=== PATIENT | female | born 2000 | race Caucasian/White ===

== ENCOUNTER 2024-04-24 20:33 | Emergency (ER) | payer MEDICAID, SELFPAY ==
[2024-04-24 20:35] VITALS: BP 145/83; PULSE 104; RESP 20; TEMP 36.9; O2SAT 97
[2024-04-24 20:42] VITALS: PULSE 119; RESP 20; O2SAT 100
[2024-04-24 20:47] VITALS: BMI 34.9
--- NOTE | 2024-04-24 21:06 | PD.EDRME ---
Rapid Medical Screening Exam RME Arrival date/time: 04/24/24 20:33 24F with history of DM and psych presents to ED with voluntary psych eval. Patient is not speaking to this provider. Chief Complaint: Depression Time Seen by Provider: 04/24/24 21:23 Vital signs: Vital Signs Temperature 98.4 F 04/24/24 20:35 Pulse Rate 104 H 04/24/24 20:35 Respiratory Rate 20 04/24/24 20:35 Blood Pressure 145/83 H 04/24/24 20:35 Pulse Oximetry (%) 97 04/24/24 20:35 Oxygen Delivery Method Room Air 04/24/24 20:35
--- NOTE | 2024-04-24 22:07 | PD.EDPSYCH ---
ED Psych RME/HPI General Chief Complaint: Depression Stated Complaint: VOLUNTEER EVAL Time Seen by Provider: 04/24/24 21:23 Source: patient Arrival date/time: 04/24/24 20:33 Mode of arrival: ambulatory Limitations: no limitations RME / HPI RME / HPI Narrative: 04/24/24 20:33 24F with history of DM and psych presents to ED with voluntary psych eval. Patient is not speaking to this provider. --- DR. LEE MAIN ED EVALUATION: 24 yo who is here for not feeling well and feels like she came out of something . The patient states that she feels overwhelmed that time and then will get overwhelmed and feel anxious. She does have a seizure disorder but does not recall if she had a seizure or not. She feels overwhelmed, not suicidal, not homicidal but feels like she is just needs help. She has generalized headache and bodyaches. No fevers, or cough. This has happened before or when she feels like she needs psychiatric evaluation. Related Data Home Medications ?Medication ?Instructions ?Recorded ?Confirmed atorvastatin 20 mg tablet 20 mg PO HS 06/16/22 07/03/23 guanfacine 1 mg tablet 1 mg PO HS 06/16/22 07/03/23 norgestimate 0.25 mg-ethinyl 1 tab PO QDAY 06/16/22 07/03/23 estradiol 35 mcg tablet (Estarylla) buspirone 15 mg tablet 15 mg PO BID 07/03/23 07/03/23 fluoxetine 20 mg capsule 20 mg PO QDAY 07/03/23 07/03/23 levetiracetam 750 mg tablet 750 mg PO QDAY 07/03/23 07/03/23 metformin 500 mg tablet 500 mg PO BID 07/03/23 07/03/23 oxcarbazepine 150 mg tablet 150 mg PO BID 07/03/23 07/03/23 ziprasidone HCl 40 mg capsule 40 mg PO HS 07/03/23 07/03/23 Previous Rx's ?Medication ?Instructions ?Recorded levofloxacin 750 mg tablet 750 mg PO QDAY #3 tabs 07/06/23 Allergies Allergy/AdvReac Type Severity Reaction Status Date / Time Sulfa (Sulfonamide Allergy Unknown Verified 07/01/23 19:34 Antibiotics) Review of Systems Review of Systems Systems Reviewed: All systems reviewed, normal except as documented Narrative Review of Systems: Gen: No fever, no chills, no weight loss EYES: No discharge, no visual changes, no pain HEENT: No ear pain, no congestion, no sore throat PULM: No shortness of breath, no cough, no congestion CV: No chest pain, no dyspnea on exertion, no palpitations GI: No nausea, no vomiting, no diarrhea, no pain, no constipation : No frequency, no urgency, no dysuria Musc/skel: No joint pain, no back pain Skin: No rash. Psyc: No hallucinations, no depression Heme/Lymph: No easy bleeding or bruising tendencies Neuro: No weakness, no headache Past Medical History Past Medical History NEUROLOGIC: Positive Neurological Disorders and Seizures CARDIAC: Positive Hypercholesterolemia and Hypertension; Negative Cardiac Disorders or Congestive Heart Failure RESPIRATORY: Negative Chronic Obstructive Pulmonary Disease (COPD) or Asthma GENITOURINARY: Negative Renal Disease ENDOCRINE: Positive Endocrine Disorders and Diabetes Mellitus Type 2; Negative Diabetes Mellitus Type 1 HEMATOLOGIC: Negative Sickle Cell Disease PSYCHO/SOCIAL: Positive Psychiatric Problems, Schizophrenia, Bipolar Disorder, Depression and Anxiety OTHER HISTORY: Negative Autoimmune Disease Family History FAMILY HISTORY: Positive Family Psychiatric Problems; Negative Family Neurologic Problems, Family Respiratory Disorders, Family Cardiac Disorders, Family Gastrointestinal Problems, Family Cancer, Family Surgery or Family Anesthesia Reaction Surgical History SURGICAL: Positive Adenoidectomy Social History SMOKING STATUS: Never smoker SUBSTANCE USE: former substance user (last use 1 year ago) ED Exam Narrative Physical exam: Patient is tearful and crying. She is alert and oriented and talking in full sentences. General Limitations: Present no limitations General appearance: Present other Head Head exam: Present normocephalic and normal inspection; Absent atraumatic Eye Eye exam: Present PERRL ENT ENT exam: Present normal exam Neck Neck exam: Absent meningismus Chest Chest inspection: Present normal inspection; Absent tenderness Respiratory Respiratory exam: Present normal lung sounds bilaterally; Absent respiratory distress, wheezes or stridor Abdominal Exam Abdominal exam: Present distention; Absent tenderness, guarding or rebound Extremities Exam Extremities exam: Absent normal inspection or pedal edema Back Exam Back exam: Present normal inspection Psychiatric Psychiatric exam: Present depressed, agitated, anxious and flat affect; Absent manic, homicidal ideation or suicidal ideation Skin Skin exam: Present warm; Absent dry, intact or normal color Course Quality Measures none Orders Category Date Time Status Alcohol, Urine Stat Lab 04/24/24 22:52 Completed Drug Screen,Urine Stat Lab 04/24/24 22:52 Completed HCG Qualitative,Urine Stat Lab 04/24/24 22:52 Completed Vital Signs Vital signs: Vital Signs Temperature 98.4 F 04/24/24 20:35 Pulse Rate 104 H 04/24/24 20:35 Respiratory Rate 20 04/24/24 20:35 Blood Pressure 145/83 H 04/24/24 20:35 Pulse Oximetry (%) 97 04/24/24 20:35 Oxygen Delivery Method Room Air 04/24/24 20:35 Psych MDM Narrative MDM Narrative:: Differential diagnosis includes seizure disorder, psychiatric disorder, dehydration, electrolyte abnormality, hyperglycemia ? Scribe Attestation: I, Katlin Parrish, am scribing for and in the presence of Dr. Otero. Provider Notation: Although this document has been carefully reviewed, there may still be some phonetic and other typographical errors. These errors are purely grammatical due to imperfections in the software program and should not be construed in any way to compromise the substance of the patient's medical care during this visit. Patient data External records reviewed:: [facility] previous records Clinical information provided by:: patient Social determinants that could affect healthcare access:: mental health Patient has the following chronic illnesses:: Seizures, Hypercholesterolemia and Hypertension; Diabetes Mellitus Type 2; Schizophrenia, Bipolar Disorder, Depression and Anxiety How is presenting disease/condition affected by chronic disease/condition?: uneffected by Evaluation data The following diagnostics were reviewed and interpreted by me:: lab results Lab and/or radiology exams considered but not ordered:: None Interpretation Summary: Utox neg Medications / Prescriptions Medications or Prescriptions considered but not ordered:: None Medication administrations:: As above Consultations Consultation(s) initiated? (list below): No Diagnosis Psych Differential Diagnosis: other (seizure disorder, psychiatric disorder, dehydration, electrolyte abnormality, hyperglycemia) Most likely diagnosis given after review of the tests above:: Patient eloped Admission Indicated Admission indicated?: not indicated Explain why admission is indicated or not indicated:: Elopement Admission Request Was there a request for admission?: No Disposition Plan Disposition Plan: other (specify) (Elopment) Discharge Plan Plan Patient Disposition: Elopement Patient condition on transfer: Stable Prescriptions/Referrals Prescriptions/Med Rec: No Action ziprasidone HCl 40 mg Capsule 40 mg PO HS metformin 500 mg Tablet 500 mg PO BID oxcarbazepine 150 mg Tablet 150 mg PO BID fluoxetine 20 mg Capsule 20 mg PO QDAY buspirone 15 mg Tablet 15 mg PO BID levetiracetam 750 mg Tablet 750 mg PO QDAY levofloxacin 750 mg tablet 750 mg PO QDAY Qty: 3 0RF atorvastatin 20 mg tablet 20 mg PO HS Patient Comments: TAKE 1 TABLET BY MOUTH AT BEDTIME norgestimate-ethinyl estradiol [Estarylla] 0.25-35 mg-mcg Tablet 1 tab PO QDAY guanfacine 1 mg Tablet 1 mg PO HS Referrals: No Primary/Family,Physician [Primary Care Provider] - In 1 week Problem List Clinical Impression: Anxiety Patient/Caregiver Discharge Instructions Education Materials: ED Anxiety Reaction Print Language: Puerto Rican Stand Alone Forms: Naz Award Info., Patient Portal Info Letter
[2024-04-24 23:43] LABS: Alcohol, Urine Negative (Negative); Amphetamine/Methamp Scrn,U Negative (Negative); Barbiturate Screen,Urine Negative (Negative); Benzodiazepines Screen,Urine Negative (Negative); Benzoylecgonine Screen, Ur Negative (Negative); Fentanyl Screen,Urine Negative (Negative); HCG Qualitative,Urine Negative; Opiate Screen,Urine Negative (Negative); THC Screen,Urine Negative (Negative)
--- NOTE | 2024-04-25 03:10 | PC.NURSE ---
PT WALK OUT OF THE ER
== END 2024-04-25 03:10 | disposition left against medical advice (07) ==
PROVIDERS: Physician Assistant; Emergency Provider Emergency Medicine
DX: F41.9 Anxiety disorder, unspecified (principal)
CPT/HCPCS: 80307; 80320; 81025; 99281; G0480

== ENCOUNTER 2024-07-20 13:02 | Emergency (ER) | payer MEDICAID, SELFPAY ==
[2024-07-20 13:15] VITALS: BP 137/89; PULSE 124; RESP 21; TEMP 36.6; O2SAT 94
[2024-07-20 13:16] VITALS: BMI 45.1
[2024-07-20 13:46] VITALS: PULSE 120; RESP 17; O2SAT 97
--- NOTE | 2024-07-20 13:46 | PD.EDHA ---
ED Headache RME/HPI General Chief Complaint: Headache Stated Complaint: HEADACHE Time Seen by Provider: 07/20/24 13:46 Arrival date/time: 07/20/24 13:02 RME / HPI RME / HPI Narrative: Patient's brought in by EMS after EMS was called by [employer] educator concern for this patient. At the scene she was found have a blood pressure that was low blood pressure went up from 180s to 137 range. There is a questionable episode of syncope. Patient has a history of both bipolar and schizophrenia, patient reports having headaches for the past 2 months and has gone to [facility] with a plan to do a CAT scan of her brain. Is also supposed has a recent diagnosis of seizures and has had nausea since June etiology unclear. Patient has no fever cough runny nose. She has no injury or trauma. She is on several psych medicines. Related Data Home Medications ?Medication ?Instructions ?Recorded ?Confirmed atorvastatin 20 mg tablet 20 mg PO HS 06/16/22 07/03/23 guanfacine 1 mg tablet 1 mg PO HS 06/16/22 07/03/23 norgestimate 0.25 mg-ethinyl 1 tab PO QDAY 06/16/22 07/03/23 estradiol 35 mcg tablet (Estarylla) buspirone 15 mg tablet 15 mg PO BID 07/03/23 07/03/23 fluoxetine 20 mg capsule 20 mg PO QDAY 07/03/23 07/03/23 levetiracetam 750 mg tablet 750 mg PO QDAY 07/03/23 07/03/23 metformin 500 mg tablet 500 mg PO BID 07/03/23 07/03/23 oxcarbazepine 150 mg tablet 150 mg PO BID 07/03/23 07/03/23 ziprasidone HCl 40 mg capsule 40 mg PO HS 07/03/23 07/03/23 Previous Rx's ?Medication ?Instructions ?Recorded levofloxacin 750 mg tablet 750 mg PO QDAY #3 tabs 07/06/23 Allergies Allergy/AdvReac Type Severity Reaction Status Date / Time Sulfa (Sulfonamide Allergy Unknown Verified 07/01/23 19:34 Antibiotics) Review of Systems Review of Systems Narrative Review of Systems: Review of Systems: Constitutional: DENIES: Fevers,; Eyes: DENIES: Loss of vision, Head/Ear/Nose: DENIES: Loss of hearing. Throat: Denies dysphagia. Cardiovascular: Denies chest pain, Dyspnea or syncope. Respiratory: DENIES: Shortness of breath, Gastrointestinal: DENIES: Rectal bleeding or melena. Genitourinary: DENIES: Dysuria (painful or difficult urination),; Musculoskeletal: DENIES: Arthralgia (pain in a joint),; Skin: DENIES: Rash,; Neurological: DENIES: loss of function or movement,; Psychiatric: DENIES: recent major life stressor, emotional problem, illicit drug use or abuse,; Endocrinology: DENIES: Weight change,; Hematologic/Lymphatic: DENIES: Abnormal bruising. Allergic/Immunologic: DENIES: Urticaria (hives), Past Medical History Past Medical History NEUROLOGIC: Positive Neurological Disorders and Seizures CARDIAC: Positive Hypercholesterolemia ENDOCRINE: Positive Endocrine Disorders and Diabetes Mellitus Type 2 PSYCHO/SOCIAL: Positive Psychiatric Problems, Schizophrenia, Bipolar Disorder, Depression and Anxiety Family History FAMILY HISTORY: Positive Family Psychiatric Problems Surgical History SURGICAL: Positive Adenoidectomy Social History SMOKING STATUS: Never smoker SUBSTANCE USE: former substance user (last use 1 year ago) ED Exam Narrative Physical exam: Physical Exam: General: The vital signs were reviewed. Patient is lying on the ambulance gurney in the ambulance bay she appears to be somewhat dramatic at times. She follows commands and moves everything on request. She is able to stand on her own but states she feels weak and dizzy takes a few steps and appears to be unsteady or uncertain so we sat her down. The patient is non-toxic, in no apparent distress and appears healthy with a patent airway, no respiratory distress and has no apparent circulatory problems. Head & Scalp: Normocephalic, atraumatic. Face: Appears normal and is without lesions, deformity. Ears: Left external pinna appears normal. Right external pinna appears normal. Eyes: The sclera is anicteric. No obvious photophobia. The Left and Right Orbit/Lid/Conjunctiva appears normal without swelling, discoloration or injection. Nose: The nose is without deformity, discharge or tenderness; Throat: Appears normal. The mucous membranes are pink and moist without exudates, redness or mass seen. The tongue appears normal. Neck: The neck is supple and no apparent mass or adenopathy. Chest: The chest wall is normal in size and symmetry and has no chest wall tenderness or crepitus. The patient displays normal ventilator effort without retractions, accessory muscle use and has adequate air movement bilaterally with no wheezes and no rales. Cardiovascular: Regular rate and rhythm; No murmurs, rubs, or gallops; Gastrointestinal: The abdomen appears normal. No obvious hernias or mass. The abdomen is soft and benign, non-distended, with no pain, no guarding and no rebound tenderness. Bowel sounds are present and normal sounding. No CVA tenderness. Genitourinary: Back/Spine: Extremities/Musculoskeletal/lymphatic: The bilateral upper and lower extremities are warm. There is no evidence of arterial insufficiency. There is no evidence of venous insufficiency/edema. The patient spontaneously moves bilateral upper and lower extremities with no pain and no limitation of movement. There is no apparent, injury or trauma. Skin: The skin is warm, dry and intact. No rashes. No petechia. No purpura. No abnormal bruising. The color is appropriate with no cyanosis. Mental status/Psychiatric: Mental status is appropriate for age. The patient has no apparent delusions, visual hallucinations, no apparent audible hallucinations. The patient has no apparent suicidal thoughts/ideation and no apparent homicidal thoughts/ideation. Neurological: The patient is awake, alert, interactive, cordial, cooperative and is oriented to name and situation. The patient follows commands and answers historical question with no impairment. There is no visual disturbance apparent. The pupils are equal and reactive bilaterally with normal eye movements and no diplopia The bilateral upper and lower extremities have normal strength, normal range of motion and normal functioning. The gait, station and balance appear to be unsteady or uncertain. She has no obvious dysmetria on finger-nose testing patient appeared to get her have some element of vertigo with head position changes. Course Quality Measures none Orders Category Date Time Status EKG (ED ONLY) *Do not use* NOW Care 07/20/24 13:48 Completed Miscellaneous Nursing Order NOW Care 07/20/24 16:28 Active EKG (ED Only) Stat Exams 07/20/24 13:48 Draft XR chest 1V portable Stat Exams 07/20/24 13:48 Completed B-Type Natriuretic Peptide Stat Lab 07/20/24 14:15 Completed Blood Culture (Lab) Stat Lab 07/20/24 14:10 Received CBC Stat Lab 07/20/24 14:15 Completed Comprehensive Metabolic Panel Stat Lab 07/20/24 14:15 Completed Drug Screen,Urine Stat Lab 07/20/24 16:30 Completed Lactate (Lactic Acid) Stat Lab 07/20/24 14:15 Completed Lactic Acid, 3 HR Stat Lab 07/20/24 17:25 Ordered Lipase Stat Lab 07/20/24 14:15 Completed Magnesium Stat Lab 07/20/24 14:15 Completed Troponin I Stat Lab 07/20/24 14:15 Completed Urinalysis Stat Lab 07/20/24 16:30 Completed Urinalysis, C/S if Indicated Stat Lab 07/20/24 16:30 Completed Venous Blood Gas Stat Lab 07/20/24 14:15 Completed Sodium Chloride 0.9% 1000 ml [Ns] 1,000 ml Med 07/20/24 13:48 Active IV 150 mls/hr Sodium Chloride 0.9% 1000 ml [Ns] 1,000 ml Med 07/20/24 13:48 Discontinued IV 999 mls/hr Sodium Chloride 0.9% 1000 ml [Ns] 1,000 ml Med 07/20/24 16:27 Discontinued IV 999 mls/hr Vital Signs Vital signs: Vital Signs Temperature 97.9 F 07/20/24 13:15 Pulse Rate 124 H 07/20/24 13:15 Respiratory Rate 21 H 07/20/24 13:15 Blood Pressure 137/89 H 07/20/24 13:15 Pulse Oximetry (%) 94 L 07/20/24 13:15 Oxygen Delivery Method Room Air 07/20/24 13:15 Pulse ox is 94% on room air which is adequate. Headache MDM Narrative MDM Narrative:: Patient was found hypotensive resolved with 500 cc fluid bolus of uncertain etiology with a psych history and the back on medications but appears or something new in the past month or 2 affecting this patient's balance and clear today she was hypotensive release per EMS is blood pressure measurement on their initial assessment. Medical workup at 1629 hrs. patient's lab revealed a white count of 15.6 hemoglobin is 14.4 venous blood gas is normal with a pH of 7.40 pCO2 of 37 electrolytes are normal BUN 7 creatinine 0.7 lactic acid came back at 4.4 with no clear reason why. Transaminases are normal bilirubin is normal troponin was negative BNP was negative urinalysis has not been collected as of 1630 hrs. Patient at 1640 hours has not received her first IV liter of fluids so ordered a second liter and after the second liter of fluid we can recheck a second lactic acid. Urine urine drug screen are pending. Patient clinically appears okay at 1640 hrs. and is looking at her phone. Review of the chart reveals CT scan of the head was overlooked and now ordered. Initial lactic acid came back at 4.4 and there is 2 L of fluid still pending. The care of the patient goes to my oncoming partner at 1800 hrs. to reevaluate the patient after fluids recheck the lactic acid and a CT scan. The cause of this patient's elevated lactic acid is unclear. There is no witnessed seizure that was reported. Patient data External records reviewed:: [facility] previous records (I reviewed ED Visit on 04/24/2024 ) and EMS form Clinical information provided by:: patient and EMS Social determinants that could affect healthcare access:: mental health Patient has the following chronic illnesses:: psych hx How is presenting disease/condition affected by chronic disease/condition?: uneffected by Evaluation data The following diagnostics were reviewed and interpreted by me:: lab results, radiology exam(s) and EKG tracing(s) (sinus tachycardia, rate 115, no STEMI ) Lab and/or radiology exams considered but not ordered:: None Interpretation Summary: Ordering Physician: Milo Yadav MD Date of Service: 07/20/24 Procedure(s): XR chest 1V portable Accession Number(s): [id number] cc: Sandoval Cooper MD; Milo Yadav MD; Adelfo Blackmon MD~ Examination: AP chest single view Technique one AP portable upright chest single view Exam date and time: July 20, 2024, 1310 hrs. Indications: Onset chest pain today. Findings: Normal heart size. Lungs are clear. The osseous structures are intact. Impression: No active disease. Dictated By: Adelfo Blackmon MD Signed By: <Electronically signed by Adelfo Blackmon MD in OV> 07/20/24 [id number] Medications / Prescriptions Medications or Prescriptions considered but not ordered:: None Medication administrations:: Medication Administration History Sodium Chloride (Ns) 1,000 mls @ 150 mls/hr IV .Q6H40M ONE Stop: 07/20/24 20:27 Discontinued Medications Sodium Chloride (Ns) 1,000 mls @ 999 mls/hr IV .Q1H1M ONE Stop: 07/20/24 14:48 Sodium Chloride (Ns) 1,000 mls @ 999 mls/hr IV .Q1H1M ONE Stop: 07/20/24 17:27 See above Consultations Consultation(s) initiated? (list below): No Diagnosis Differential diagnosis headache: migraine, tension headache and headache Most likely diagnosis given after review of the tests above:: Leukocytosis elevated lactic acid weakness headache for 2 months unsteady gait Admission Indicated Admission indicated?: not indicated Admission Request Was there a request for admission?: No Disposition Plan Disposition Plan: other (specify) (Workup waiting for completion to make final disposition care to oncoming doctor at 1800 hrs.) Discharge Plan Prescriptions/Referrals Prescriptions/Med Rec: No Action ziprasidone HCl 40 mg Capsule 40 mg PO HS metformin 500 mg Tablet 500 mg PO BID oxcarbazepine 150 mg Tablet 150 mg PO BID fluoxetine 20 mg Capsule 20 mg PO QDAY buspirone 15 mg Tablet 15 mg PO BID levetiracetam 750 mg Tablet 750 mg PO QDAY levofloxacin 750 mg tablet 750 mg PO QDAY Qty: 3 0RF atorvastatin 20 mg tablet 20 mg PO HS Patient Comments: TAKE 1 TABLET BY MOUTH AT BEDTIME norgestimate-ethinyl estradiol [Estarylla] 0.25-35 mg-mcg Tablet 1 tab PO QDAY guanfacine 1 mg Tablet 1 mg PO HS Referrals: Sandoval Cooper MD [Primary Care Provider] - In 1 week Problem List Clinical Impression: Hypotension, Near syncope, Elevated lactic acid level, Leukocytosis, Bipolar disorder, Schizophrenia Patient/Caregiver Discharge Instructions Print Language: Kazakh
--- NOTE | 2024-07-20 13:48 | EKG_ITS ---
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
[2024-07-20 14:28] LABS: Basophils # (Auto) 0.1 Thou/mm3 (0.0-0.2); Basophils % (Auto) 0 % (0-2.5); Eosinophils # (Auto) 0.2 Thou/mm3 (0.0-0.5); Eosinophils % (Auto) 1 % (0-10); Hematocrit 43.9 % (36.0-46.0); Hemoglobin 14.4 g/dL (12.0-16.0); Immature Granulocytes % (Auto) 0 % (0-0); Immature Granulocytes Auto 0.06 Thou/mm3 (0.00-0.00); Lymphocytes # (Auto) 2.7 Thou/mm3 (1.0-4.8); Lymphocytes % (Auto) 17 % (10-50); Mean Corpuscular HGB Conc 32.8 g/dl (31.0-37.0); Mean Corpuscular Hemoglobin 28.6 pg (25.0-35.0); Mean Corpuscular Volume 87 fL (80-100); Monocytes # (Auto) 0.8 Thou/mm3 (0.0-0.8); Monocytes % (Auto) 5 % (0-12); Neutrophils # (Auto) 11.8 Thou/mm3 (1.8-7.7); Neutrophils % (Auto) 76 % (37-80); Nucleated Red Blood Cell % 0 /100 WBC (0); Platelet Count 470 Thou/mm3 (140-440); RDW Standard Deviation 46.4 fL (36.4-46.3); Red Blood Count 5.03 Miln/mm3 (4.00-5.20); White Blood Count 15.6 Thou/mm3 (3.6-11.0)
[2024-07-20 14:32] LABS: Base Excess, Venous -2 (-3-3); O2 Saturation, Venous 82 % (96-97); PCO2, Venous 37 mmHg (36-56); PO2, Venous 46 mmHg (15-58)
[2024-07-20 14:35] LABS: Lactate (Lactic Acid) 4.4 mMol/L (0.4-2.0)
[2024-07-20 14:56] LABS: B-Type Natriuretic Peptide < 20 pg/mL (0-100)
[2024-07-20 14:57] LABS: Alanine Aminotransferase 15 U/L (10-49); Albumin, Serum 4.5 gm/dL (3.5-5.0); Albumin/Globulin Ratio 1.5 (1.2-2.2); Alkaline Phosphatase 76 U/L (46-116); Anion Gap 16 (7-16); Aspartate Amino Transferase 16 U/L (0-34); BUN/Creatinine Ratio 13 Ratio (12-20); Bilirubin,Total 0.3 mg/dL (0.3-1.2); Blood Urea Nitrogen 9 mg/dL (9-23); Calcium 9.2 mg/dL (8.3-10.6); Calcium (Corrected) 9.2 mg/dL (8.5-10.1); Carbon Dioxide 22.2 mMol/L (20.0-31.0); Chloride 104 mMol/L (98-107); Creatinine (Component) 0.7 mg/dL (0.6-1.3); Globulin 3.1 gm/dL (2.3-3.5); Glucose 164 mg/dL (74-106); Lipase 59 U/L (12-53); Magnesium 1.6 mg/dL (1.6-2.6); Osmolality,Calculated 285 (275-295); Potassium 4.1 mMol/L (3.4-5.1); Sodium 142 mMol/L (136-145); Total Protein 7.6 gm/dL (5.7-8.2); Troponin I < 0.002 ng/mL (0.0-0.045); eGFR > 60 See Note
[2024-07-20 16:41] LABS: Collection Type, Urine Clean Catch
[2024-07-20 16:54] LABS: Bilirubin,Urine Negative (Negative); Blood,Urine 3+ (Negative); Clarity,Urine Clear (Clear/Hazy); Color,Urine Lt-Yellow (Lt Yel-Yel); Culture Indicated,Urine Not Indicated; Glucose, Urine 4+ (Negative); Ketones,Urine Negative (Negative); Leukocyte Esterase,Urine Negative (Negative); Nitrite,Urine Negative (Negative); Protein,Urine 1+ (Neg - Trace); RBC,Urine 57 /hpf (0-3); Specific Gravity,Urine 1.035 (1.001-1.035); Squamous Epithelial Cell,Urine 1 /hpf (0-5); Urobilinogen,Urine Negative mg/dL (0.0-1.0); WBC,Urine 3 /hpf (0-5)
[2024-07-20 16:57] LABS: Amphetamine/Methamp Scrn,U Negative (Negative); Barbiturate Screen,Urine Negative (Negative); Benzodiazepines Screen,Urine Negative (Negative); Benzoylecgonine Screen, Ur Negative (Negative); Fentanyl Screen,Urine Negative (Negative); Opiate Screen,Urine Negative (Negative); THC Screen,Urine Negative (Negative)
[2024-07-20 17:25] LABS: Reflex Lactate? Y
--- NOTE | 2024-07-20 18:14 | XR_ITS ---
Examination: CT brain head without contrast. 2-D sagittal coronal reconstructions Date and time of exam:July 20, 2024 1831 hrs. Indications: Headaches dizziness today CTDI: vol (mGy):51.3 DLP: (mGycm):1004 Technique: Multiple CT axial sections of the brain have been obtained, 5 mm slice thickness. Contrast has not been administered. 2-D sagittal, coronal reconstructions have been obtained Low dose protocols were performed. One or more of the following dose reduction techniques were used; automated exposure control, adjustment of the mA and/or KV according to patient size, use of iterative reconstruction technique. Findings: No significant ventricular enlargement. Intra-axial or extra-axial hemorrhage density is not seen. No mass effect or midline shift Basal cisterns are not remarkable. Fourth ventricle is midline. Cranial vault intact. Chronic left mastoiditis Impression: Negative for acute hemorrhage, mass effect or midline shift
[2024-07-20 18:15] LABS: Lactic Acid, 3 HR 3.9 mMol/L (0.4-2.0)
[2024-07-20 18:18] VITALS: BP 132/56; PULSE 122; RESP 17; TEMP 37.3; O2SAT 96
[2024-07-20] MEDS: SODIUM CHLORIDE 0.9% 1000 ML 1,000 ML 999 ML IV ×2 (18:47→18:48)
[2024-07-20 20:52] LABS: HCG Qualitative,Urine Negative
--- NOTE | 2024-07-20 21:08 | PD.EDADDENDU ---
Emergency Room Addendum <Dutch Parrish - Last Filed: 07/20/24 22:07> Addendum Narrative: [address] Yadav. Past medical, surgical, social and family history reviewed. Vitals and home medications reviewed. Results and treatment plan discussed. I will assume the care of the patient at this time and will follow the patient, pending re-evaluation of the patient after fluids, recheck the lactic acid, and a CT scan Please refer to the emergency department record for history and examination from initial visit. The following addendum documentation note is intended to reflect any pending information, findings, or radiology results not included in the patient?s initial chart. 2109 Patient re-evaluated. Patient reports generalized headache and dizziness. The patient is alert and oriented to person, place, time, and situation. Patient is tearful and crying. Cranial nerves II-XII are intact. Motor strength is 5/5 in all extremities, with normal muscle tone and no pronator drift. Sensation is intact to light touch bilaterally. Cerebellar function is intact. Gait is steady, and Romberg is negative. No dysmetria or dysdiadochokinesia noted. No focal neurological deficits. 2114 Spoke with patient's brother with charge nurse present. He states patient is on Keppra for a seizure disorder. 2123 Sepsis alert initiated. Patient has elevated WBC 15.6, tachycardic at 122 bpm, and lactic acid of 4.4, repeat 3.9. Patient met SIRS criteria for sepsis. Re-evaluation is to be completed. Zosyn IV, CT brain, and fluids have been ordered. 2153 Sepsis reassessment performed consisting of lab review, vitals, physical exam including auscultation of heart, lungs, and visual evaluation of capillary refills, mucosal membranes and extremities. Differential diagnosis includes near syncopal episode, elevated lactic acid level, leukocytosis, dehydration, electrolyte abnormality, sepsis RADIOLOGY DATA: Examination: CT brain head without contrast. Date and time of exam:July 20, 2024 1831 hrs. Indications: Headaches dizziness today Findings: No significant ventricular enlargement. Intra-axial or extra-axial hemorrhage density is not seen. No mass effect or midline shift Basal cisterns are not remarkable. Fourth ventricle is midline. Cranial vault intact. Chronic left mastoiditis Impression: Negative for acute hemorrhage, mass effect or midline shift Dictated By: Adelfo Blackmon MD <Jo Cooper - Last Filed: 07/21/24 05:07> Addendum Narrative: [address] Yadav. Past medical, surgical, social and family history reviewed. Vitals and home medications reviewed. Results and treatment plan discussed. I will assume the care of the patient at this time and will follow the patient, pending re-evaluation of the patient after fluids, recheck the lactic acid, and a CT scan Please refer to the emergency department record for history and examination from initial visit. The following addendum documentation note is intended to reflect any pending information, findings, or radiology results not included in the patient?s initial chart. 2109 Patient re-evaluated. Patient reports generalized headache and dizziness. The patient is alert and oriented to person, place, time, and situation. Patient is tearful and crying. Cranial nerves II-XII are intact. Motor strength is 5/5 in all extremities, with normal muscle tone and no pronator drift. Sensation is intact to light touch bilaterally. Cerebellar function is intact. Gait is steady, and Romberg is negative. No dysmetria or dysdiadochokinesia noted. No focal neurological deficits. 2114 Spoke with patient's brother with charge nurse present. He states patient is on Keppra for a seizure disorder. 2123 Sepsis alert initiated. Patient has elevated WBC 15.6, tachycardic at 122 bpm, and lactic acid of 4.4, repeat 3.9. Patient met SIRS criteria for sepsis. Re-evaluation is to be completed. Zosyn IV, CT brain, and fluids have been ordered. 2153 Sepsis reassessment performed consisting of lab review, vitals, physical exam including auscultation of heart, lungs, and visual evaluation of capillary refills, mucosal membranes and extremities. Differential diagnosis includes near syncopal episode, elevated lactic acid level, leukocytosis, dehydration, electrolyte abnormality, sepsis. In summary: patient is medical record is reviewed. She has a history of bipolar, schizophrenia, anxiety presenting multiple times with similar presentations of not knowing where she is, possible seizure, not feeling well, last admitted in 2023 for acute hypoxic respiratory failure secondary to bilateral pneumonia and UTI. Patient does not report to me that she had a seizure this morning. She states that she has just been feeling bad for few months. I spoke to her brother Cristian who reports the same. Since she was not feeling well he told her to come to the emergency department today. Lactate elevated? Possibly secondary to metformin unclear etiology, however white count is 15 and therefore sepsis workup is obtained. CT head and chest abdomen pelvis are reassuring the patient has not of a PE and/or pneumonia. No intra-abdominal acute findings. Repeat Lactate improved to 2.5. VBG is within normal limits. Patient is stable to be discharged home. RADIOLOGY DATA: Examination: CT brain head without contrast. Date and time of exam:July 20, 2024 1831 hrs. Indications: Headaches dizziness today Findings: No significant ventricular enlargement. Intra-axial or extra-axial hemorrhage density is not seen. No mass effect or midline shift Basal cisterns are not remarkable. Fourth ventricle is midline. Cranial vault intact. Chronic left mastoiditis Impression: Negative for acute hemorrhage, mass effect or midline shift Dictated By: Adelfo Blackmon MD [facility] Report Signed Patient: ADRIENNE HODGE. Record#: [id number] Birthdate: 2000 Age/Sex: 24 / F [facility] Attending Dr: Ordering Physician: Ching Manuel MD Date of Service: 07/20/24 Procedure(s): CT angio chest abdomen pelvis Accession Number(s): [id number] cc: Sandoval Cooper MD; Adelfo Blackmon MD; Ching Manuel MD~ Examination: CTA chest, with intravenous contrast. CTA abdomen, with intravenous contrast. CTA pelvis, with intravenous contrast. 2-D sagittal and coronal reconstructions. 3-D reconstructions. Date and time of exam: July 20, at 5 1250 hrs. Indications: Shortness of breath chest pain difficulty breathing today CTDI vol (mgy) 5.7 DLP (MGycm) 1226 Technique: Multiple CTA images, 2.0 mm slice thickness, obtained chest, abdomen, pelvis, with the high-resolution 64 slice scanner. 100 cc pleural fluid adjacent to the is administered intravenously. Sagittal and coronal 2-D reconstructions are obtained. 3-D reconstructions, angiographic images are obtained. 3-D postprocessing, including vascular maximum intensity projections. Low dose protocols were performed. One or more of the following dose reduction techniques were used; automated exposure control, adjustment of the mA and/or KV according to patient size, use of iterative reconstruction technique. Findings: No thoracic aortic dilatation No filling defects pulmonary arteries No pneumonia or pulmonary edema or pleural disease No visualized liver splenic or renal lesion Contracted gallbladder No pancreatic mass No hydronephrosis Aorta normal size Normal appendix No bowel obstruction No pelvic mass Bladder intact Impression: Negative for pulmonary artery emboli No pneumonia, pulmonary edema or pleural disease Hepatomegaly 25 cm Normal appendix No renal or ureteral calculi, no hydronephrosis Dictated By: Adelfo Blackmon MD Signed By: <Electronically signed by Adelfo Blackmon MD in OV> 07/20/24 7393 <Ching Manuel MD - Last Filed: 07/22/24 06:40> Addendum Narrative: [address] Yadav. Past medical, surgical, social and family history reviewed. Vitals and home medications reviewed. Results and treatment plan discussed. I will assume the care of the patient at this time and will follow the patient, pending re-evaluation of the patient after fluids, recheck the lactic acid, and a CT scan Please refer to the emergency department record for history and examination from initial visit. The following addendum documentation note is intended to reflect any pending information, findings, or radiology results not included in the patient?s initial chart. 2109 Patient re-evaluated. Patient reports generalized headache and dizziness. The patient is alert and oriented to person, place, time, and situation. Patient is tearful and crying. Cranial nerves II-XII are intact. Motor strength is 5/5 in all extremities, with normal muscle tone and no pronator drift. Sensation is intact to light touch bilaterally. Cerebellar function is intact. Gait is steady, and Romberg is negative. No dysmetria or dysdiadochokinesia noted. No focal neurological deficits. 2114 Spoke with patient's brother with charge nurse present. He states patient is on Keppra for a seizure disorder. 2123 Sepsis alert initiated. Patient has elevated WBC 15.6, tachycardic at 122 bpm, and lactic acid of 4.4, repeat 3.9. Patient met SIRS criteria for sepsis. Re-evaluation is to be completed. Zosyn IV, CT brain, and fluids have been ordered. 2153 Sepsis reassessment performed consisting of lab review, vitals, physical exam including auscultation of heart, lungs, and visual evaluation of capillary refills, mucosal membranes and extremities. Differential diagnosis includes near syncopal episode, elevated lactic acid level, leukocytosis, dehydration, electrolyte abnormality, sepsis. In summary: patient is medical record is reviewed. She has a history of bipolar, schizophrenia, anxiety presenting multiple times with similar presentations of not knowing where she is, possible seizure, not feeling well, last admitted in 2023 for acute hypoxic respiratory failure secondary to bilateral pneumonia and UTI. Patient does not report to me that she had a seizure this morning. She states that she has just been feeling bad for few months. I spoke to her brother Cristian who reports the same. Since she was not feeling well he told her to come to the emergency department today. Lactate elevated? Possibly secondary to metformin unclear etiology, however white count is 15 and therefore sepsis workup is obtained. CT head and chest abdomen pelvis are reassuring the patient has not of a PE and/or pneumonia. No intra-abdominal acute findings. Repeat lactate is 2.5. The patient RADIOLOGY DATA: Examination: CT brain head without contrast. Date and time of exam:July 20, 2024 1831 hrs. Indications: Headaches dizziness today Findings: No significant ventricular enlargement. Intra-axial or extra-axial hemorrhage density is not seen. No mass effect or midline shift Basal cisterns are not remarkable. Fourth ventricle is midline. Cranial vault intact. Chronic left mastoiditis Impression: Negative for acute hemorrhage, mass effect or midline shift Dictated By: Adelfo Blackmon MD [facility] Report Signed Patient: ADRIENNE HODGE Record#: [id number] Birthdate: 2000 Age/Sex: 24 / F Location: [facility] Attending Dr: Ordering Physician: Ching Manuel MD Date of Service: 07/20/24 Procedure(s): CT angio chest abdomen pelvis Accession Number(s): [id number] cc: Sandoval Cooper MD; Adelfo Blackmon MD; Ching Manuel MD~ Examination: CTA chest, with intravenous contrast. CTA abdomen, with intravenous contrast. CTA pelvis, with intravenous contrast. 2-D sagittal and coronal reconstructions. 3-D reconstructions. Date and time of exam: July 20, at 2024 1250 hrs. Indications: Shortness of breath chest pain difficulty breathing today CTDI vol (mgy) 5.7 DLP (MGycm) 1226 Technique: Multiple CTA images, 2.0 mm slice thickness, obtained chest, abdomen, pelvis, with the high-resolution 64 slice scanner. 100 cc pleural fluid adjacent to the is administered intravenously. Sagittal and coronal 2-D reconstructions are obtained. 3-D reconstructions, angiographic images are obtained. 3-D postprocessing, including vascular maximum intensity projections. Low dose protocols were performed. One or more of the following dose reduction techniques were used; automated exposure control, adjustment of the mA and/or KV according to patient size, use of iterative reconstruction technique. Findings: No thoracic aortic dilatation No filling defects pulmonary arteries No pneumonia or pulmonary edema or pleural disease No visualized liver splenic or renal lesion Contracted gallbladder No pancreatic mass No hydronephrosis Aorta normal size Normal appendix No bowel obstruction No pelvic mass Bladder intact Impression: Negative for pulmonary artery emboli No pneumonia, pulmonary edema or pleural disease Hepatomegaly 25 cm Normal appendix No renal or ureteral calculi, no hydronephrosis Dictated By: Adelfo Blackmon MD Signed By: <Electronically signed by Adelfo Blackmon MD in OV> 07/20/24 7873 Attestation <Dutch Parrish - Last Filed: 07/20/24 22:07> Attestation Scribe Attestation: I, Katlin Parrish, am scribing for and in the presence of Dr. Manuel. Provider Notation: Although this document has been carefully reviewed, there may still be some phonetic and other typographical errors. These errors are purely grammatical due to imperfections in the software program and should not be construed in any way to compromise the substance of the patient's medical care during this visit. Critical Care Time <Dutch Parrish - Last Filed: 07/20/24 22:07> Critical Care Time Critical Care Time: Yes Total Critical Care Time (min.): 45 Attestation: The high probability of sudden, clinically significant deterioration in the patient?s condition required the highest level of my preparedness to intervene urgently. ? The services I provided to this patient were to treat and/or prevent clinically significant deterioration. Services included the following: chart data review, reviewing nursing notes and/or old charts, documentation time, client care consultant collaboration regarding findings and treatment options, medication orders and management, direct patient care, vital sign assessments and ordering, interpreting and reviewing diagnostic studies and lab tests. ? Aggregate critical care time includes only time during which I was engaged in work directly related to the patient?s care, as described above, whether at bedside or elsewhere in the Emergency Department. It did not include time spent performing other reported procedures or the services of residents, students, nurses or physician assistants.
--- NOTE | 2024-07-20 21:33 | XR_ITS ---
Examination: CTA chest, with intravenous contrast. CTA abdomen, with intravenous contrast. CTA pelvis, with intravenous contrast. 2-D sagittal and coronal reconstructions. 3-D reconstructions. Date and time of exam: July 20, at 2024 1250 hrs. Indications: Shortness of breath chest pain difficulty breathing today CTDI vol (mgy) 5.7 DLP (MGycm) 1226 Technique: Multiple CTA images, 2.0 mm slice thickness, obtained chest, abdomen, pelvis, with the high-resolution 64 slice scanner. 100 cc pleural fluid adjacent to the is administered intravenously. Sagittal and coronal 2-D reconstructions are obtained. 3-D reconstructions, angiographic images are obtained. 3-D postprocessing, including vascular maximum intensity projections. Low dose protocols were performed. One or more of the following dose reduction techniques were used; automated exposure control, adjustment of the mA and/or KV according to patient size, use of iterative reconstruction technique. Findings: No thoracic aortic dilatation No filling defects pulmonary arteries No pneumonia or pulmonary edema or pleural disease No visualized liver splenic or renal lesion Contracted gallbladder No pancreatic mass No hydronephrosis Aorta normal size Normal appendix No bowel obstruction No pelvic mass Bladder intact Impression: Negative for pulmonary artery emboli No pneumonia, pulmonary edema or pleural disease Hepatomegaly 25 cm Normal appendix No renal or ureteral calculi, no hydronephrosis
[2024-07-20] MEDS: PIPER/TAZO 3.375 GM PREMIX 3.375 GM/50 ML BAG IV (22:31)
[2024-07-20 22:45] LABS: Partial Thromboplastin Time 20.7 Seconds (22.0-36.0); Prothrombin Time 11.1 Seconds (9.0-12.2)
[2024-07-20 23:05] LABS: LDH (Lactate Dehydrogenase) 147 U/L (120-246); Magnesium 1.5 mg/dL (1.6-2.6); Phosphorous 3.8 mg/dL (2.4-5.1); Procalcitonin 0.07 ng/ml (0.0-0.49); Troponin I < 0.020 ng/mL (0.0-0.045)
[2024-07-21 00:47] VITALS: BP 136/85; PULSE 112; RESP 20; TEMP 37.2; O2SAT 95
[2024-07-21 03:59] LABS: Lactate (Lactic Acid) 2.5 mMol/L (0.4-2.0)
[2024-07-21 04:00] LABS: Base Excess, Venous 1 (-3-3); O2 Saturation, Venous 69 % (96-97); PCO2, Venous 44 mmHg (36-56); PO2, Venous 38 mmHg (15-58); pH, Venous 7.39 (7.33-7.66)
[2024-07-21] MEDS: levETIRAcetam INJ 100 MG/ML VIAL 5ML 1000 MG IVP (05:23)
[2024-07-21 05:27] VITALS: BP 139/78; PULSE 106; RESP 18; TEMP 37.1; O2SAT 96
[2024-07-21 05:49] VITALS: RESP 18
[2024-07-21 06:57] LABS: Reflex Lactate? Y
== END 2024-07-21 05:50 | disposition home or self-care (01) ==
PROVIDERS: Emergency Medicine; Emergency Provider Emergency Medicine; PCP Family Medicine
DX: I95.9 Hypotension, unspecified (principal); E87.20 Acidosis, unspecified; F31.9 Bipolar disorder, unspecified; F20.9 Schizophrenia, unspecified; D72.829 Elevated white blood cell count, unspecified; R42 Dizziness and giddiness; R16.0 Hepatomegaly, not elsewhere classified; R00.0 Tachycardia, unspecified
CPT/HCPCS: 36415; 70450; 71045; 71275; 74174; 80053; 80307; 81001; 81025; 82803; 83605; 83615; 83690; 83735; 83880; 84100; 84145; 84484; 85025; 85610; 85730; 87040; 87086; 93005; 96361; 96374; 99284; A4649; J1953; J2543; J7030; Q9967

== ENCOUNTER 2024-09-27 02:31 | Emergency (ER) | payer MEDICAID, SELFPAY ==
[2024-09-27 02:35] VITALS: BP 157/90; PULSE 104; RESP 17; TEMP 36.6; O2SAT 98
[2024-09-27 02:37] VITALS: BMI 42.9
[2024-09-27 02:40] VITALS: PULSE 106
--- NOTE | 2024-09-27 02:55 | EKG_ITS ---
[facility] Test Date: 2024-09-27 Pat Name: ADRIENNE HODGE Department: Room: - Gender: Female Speech Pathology Assistant: : 2000 Requested By: Ching Matias Order Number: [id number] Reading MD: Ching Matias Measurements Intervals Charlo Rate: 100 P: 46 MI: 167 QRS: -4 QRSD: 90 T: 9 QT: 367 QTc: 475 Interpretive Statements SINUS TACHYCARDIA ABNORMAL RHYTHM ECG Compared to ECG 07/20/2024 14:01:20 No significant changes /store/S0/[id number].pdf
--- NOTE | 2024-09-27 03:32 | PD.EDRME ---
Rapid Medical Screening Exam RME Arrival date/time: 09/27/24 02:31 Chief Complaint: Overdose Time Seen by Provider: 09/27/24 03:31 Vital signs: Vital Signs Temperature 97.9 F 09/27/24 02:35 Pulse Rate 104 H 09/27/24 02:35 Respiratory Rate 17 09/27/24 02:35 Blood Pressure 157/90 H 09/27/24 02:35 Pulse Oximetry (%) 98 09/27/24 02:35 Oxygen Delivery Method Room Air 09/27/24 02:35 Vital signs reviewed by provider: Yes RME Narrative: 24-year-old female with ingestion of unknown number of Midol.
--- NOTE | 2024-09-27 03:32 | PC.NURSE ---
patient denies trying to overdose and is not SI at this time. Patient believes she only two pills of midol.
--- NOTE | 2024-09-27 04:22 | PD.EDOVER ---
ED Overdose RME/HPI General Chief Complaint: Overdose Stated Complaint: OVERDOSE Time Seen by Provider: 09/27/24 03:31 Source: patient and RN notes reviewed Arrival date/time: 09/27/24 02:31 RME / HPI RME / HPI Narrative: 24-year-old female with ingestion of unknown number of Midol. DR. MALAGON?S MAIN ED EVALUATION: 24-year-old female with history of Schizophrenia, Bipolar Disorder, Depression and Anxiety presenting to the emergency department via EMS from home who is presenting for chief complaint of Midol overedose just TRANSACTION ADVISORY SERVICES MANAGER. Per EMS, patient contacted suicide hotline. Patient denies any other associated symptoms or medical complaints. - PMH:?Seizures, Hypercholesterolemia, Hypertension, Diabetes Mellitus Type 2, Schizophrenia, Bipolar Disorder, Depression and Anxiety - PSH: Adenoidectomy - Social history: Smoker, Former substance user - Current medications: Reviewed PCP is Unknown MD complaint: intentional overdose How Overdose Was Discovered: called suicide hotline and called 911 Related Data Home Medications ?Medication ?Instructions ?Recorded ?Confirmed atorvastatin 20 mg tablet 20 mg PO HS 06/16/22 07/03/23 guanfacine 1 mg tablet 1 mg PO HS 06/16/22 07/03/23 norgestimate 0.25 mg-ethinyl 1 tab PO QDAY 06/16/22 07/03/23 estradiol 0.035 mg tablet (Estarylla) buspirone 15 mg tablet 15 mg PO BID 07/03/23 07/03/23 fluoxetine 20 mg capsule 20 mg PO QDAY 07/03/23 07/03/23 levetiracetam 750 mg tablet 750 mg PO QDAY 07/03/23 07/03/23 metformin 500 mg tablet 500 mg PO BID 07/03/23 07/03/23 oxcarbazepine 150 mg tablet 150 mg PO BID 07/03/23 07/03/23 ziprasidone HCl 40 mg capsule 40 mg PO HS 07/03/23 07/03/23 Previous Rx's ?Medication ?Instructions ?Recorded levofloxacin 750 mg tablet 750 mg PO QDAY #3 tabs 07/06/23 Allergies Allergy/AdvReac Type Severity Reaction Status Date / Time Sulfa (Sulfonamide Allergy Unknown Verified 09/27/24 02:43 Antibiotics) Review of Systems Review of Systems Systems Reviewed: All systems reviewed, normal except as documented Psychiatric Psychiatric: Reports other (Overdose) Past Medical History Past Medical History NEUROLOGIC: Positive Neurological Disorders and Seizures CARDIAC: Positive Hypercholesterolemia and Hypertension ENDOCRINE: Positive Endocrine Disorders and Diabetes Mellitus Type 2 PSYCHO/SOCIAL: Positive Psychiatric Problems, Schizophrenia, Bipolar Disorder, Depression and Anxiety Family History FAMILY HISTORY: Positive Family Psychiatric Problems Surgical History SURGICAL: Positive Adenoidectomy Social History SMOKING STATUS: Current every day smoker SUBSTANCE USE: former substance user (last use 1 year ago) Course Course Course Narrative: 0430: Patient placed on 1798 Psychiatric Hold 0600: Care transferred to Dr. Garcia (emergency physician). Results and treatment plan discussed. They will assume the care of the patient at this time and will follow the patient, pending medical clearance and psychiatric evaluation. Quality Measures none Orders Category Date Time Status 1798 Psychiatric Hold NOW Care 09/27/24 04:30 Ordered EKG (ED ONLY) *Do not use* NOW Care 09/27/24 02:56 Completed EKG (ED Only) Stat Exams 09/27/24 02:55 Draft Acetaminophen Stat Lab 09/27/24 04:07 Ordered Alcohol, Urine Stat Lab 09/27/24 04:54 Received CBC Stat Lab 09/27/24 04:08 Ordered CMP [Comprehensive Metabolic Panel] Stat Lab 09/27/24 04:07 Ordered Drug Screen,Urine Stat Lab 09/27/24 04:54 Received HCG Qualitative,Urine Stat Lab 09/27/24 04:54 Received Salicylate Stat Lab 09/27/24 04:07 Ordered DiphenhydrAMINE INJ [Benadryl Inj] Med 09/27/24 04:35 Discontinued 50 mg IVP X1 ONE Haloperidol Lactate [Haldol Inj] Med 09/27/24 04:35 Discontinued 5 mg IM X1 ONE LORazepam [Ativan Inj] Med 09/27/24 04:34 Discontinued 2 mg IVP X1 ONE Vital Signs Vital signs: Vital Signs Temperature 97.9 F 09/27/24 02:35 Pulse Rate 104 H 09/27/24 02:35 Respiratory Rate 17 09/27/24 02:35 Blood Pressure 157/90 H 09/27/24 02:35 Pulse Oximetry (%) 98 09/27/24 02:35 Oxygen Delivery Method Room Air 09/27/24 02:35 Overdose MDM Narrative MDM Narrative:: Scribe Attestation: 09/27/2024 - I, Kat Dudley, am scribing for and in the presence of Dr. Malagon. Provider Notation: Although this document has been carefully reviewed, there may still be some phonetic and other typographical errors.? These errors are purely grammatical due to imperfections in the software program and should not be construed in any way to compromise the substance of the patient's medical care during this visit. 24-year-old female with history of Schizophrenia, Bipolar Disorder, Depression and Anxiety presenting to the emergency department via EMS from home who is presenting for chief complaint of Midol overedose just TRANSACTION ADVISORY SERVICES MANAGER. ROS: Overdose Differential diagnoses include drug overdose, accidental drug ingestion, suicide by drug overdose Patient placed on 179 Psychiatric Hold. Pending psychiatric evaluation. Patient signed out to Dr. Garcia at 0600 hours. Patient data External records reviewed:: [facility] previous records (Reviewed prior ED records from 07/20/24. Patient was seen for Bipolar disorder.) and EMS form Clinical information provided by:: patient and EMS Social determinants that could affect healthcare access:: mental health Patient has the following chronic illnesses:: Seizures, Hypercholesterolemia, Hypertension, Diabetes Mellitus Type 2, Schizophrenia, Bipolar Disorder, Depression and Anxiety How is presenting disease/condition affected by chronic disease/condition?: exacerbated by Evaluation data The following diagnostics were reviewed and interpreted by me:: EKG tracing(s) (EKG manual reading, September 27, 2024 0258 hours, my interpretation: sinus tachycardia, 100 BPM, QTc is 424, QRS is 90, WI interval is 167.) Lab and/or radiology exams considered but not ordered:: None Interpretation Summary: LABS Medications / Prescriptions Medications or Prescriptions considered but not ordered:: None Medication administrations:: Medication Administration History Discontinued Medications Diphenhydramine HCl (Diphenhydramine Inj 50 Mg/Ml Vial) 50 mg IVP X1 ONE Stop: 09/27/24 04:36 Last Admin: 09/27/24 05:44 Dose: Not Given Documented By: AM Non-Admin Reason: not needed, md d/c'd Haloperidol Lactate (Haloperidol Lact Inj 5 Mg/Ml Vial) 5 mg IM X1 ONE Stop: 09/27/24 04:36 Last Admin: 09/27/24 05:43 Dose: Not Given Documented By: AM Non-Admin Reason: not needed, md adorno Lorazepam (Lorazepam 2 Mg/Ml Vial) 2 mg IVP X1 ONE Stop: 09/27/24 04:35 Last Admin: 09/27/24 05:44 Dose: Not Given Documented By: AM Non-Admin Reason: not needed, md adorno See above if any Consultations Consultation(s) initiated? (list below): No Diagnosis Overdose Differential Diagnosis: drug overdose, accidental drug ingestion and other (suicide by drug overdose) Most likely diagnosis given after review of the tests above:: UNKNOWN Admission Indicated Admission indicated?: not indicated Explain why admission is indicated or not indicated:: Pending Psychiatric Evaluation and final disposition by oncoming physician. Admission Request Was there a request for admission?: No Disposition Plan Disposition Plan: other (specify) (Pending psychiatric evaluation and final disposition from oncoming physician, Dr. Garcia.) Discharge Plan Plan Patient condition on transfer: Stable Prescriptions/Referrals Prescriptions/Med Rec: No Action ziprasidone HCl 40 mg Capsule 40 mg PO HS metformin 500 mg Tablet 500 mg PO BID oxcarbazepine 150 mg Tablet 150 mg PO BID fluoxetine 20 mg Capsule 20 mg PO QDAY buspirone 15 mg Tablet 15 mg PO BID levetiracetam 750 mg Tablet 750 mg PO QDAY levofloxacin 750 mg tablet 750 mg PO QDAY Qty: 3 0RF atorvastatin 20 mg tablet 20 mg PO HS Patient Comments: TAKE 1 TABLET BY MOUTH AT BEDTIME norgestimate-ethinyl estradiol [Estarylla] 0.25-35 mg-mcg Tablet 1 tab PO QDAY guanfacine 1 mg Tablet 1 mg PO HS Referrals: Sandoval Cooper MD [Primary Care Provider] - In 1 week Problem List Clinical Impression: Overdose Patient/Caregiver Discharge Instructions Print Language: Czech
[2024-09-27 05:55] LABS: Basophils % (Auto) 0 % (0-2.5); Eosinophils # (Auto) 0.1 Thou/mm3 (0.0-0.5); Eosinophils % (Auto) 1 % (0-10); Hematocrit 42.3 % (36.0-46.0); Immature Granulocytes % (Auto) 0 % (0-0); Immature Granulocytes Auto 0.02 Thou/mm3 (0.00-0.00); Lymphocytes # (Auto) 2.2 Thou/mm3 (1.0-4.8); Lymphocytes % (Auto) 24 % (10-50); Mean Corpuscular HGB Conc 33.1 g/dl (31.0-37.0); Mean Corpuscular Hemoglobin 28.7 pg (25.0-35.0); Mean Corpuscular Volume 87 fL (80-100); Monocytes # (Auto) 0.5 Thou/mm3 (0.0-0.8); Monocytes % (Auto) 6 % (0-12); Neutrophils # (Auto) 6.5 Thou/mm3 (1.8-7.7); Neutrophils % (Auto) 69 % (37-80); Nucleated Red Blood Cell % 0 /100 WBC (0); Platelet Count 361 Thou/mm3 (140-440); RDW Standard Deviation 47.4 fL (36.4-46.3); Red Blood Count 4.88 Miln/mm3 (4.00-5.20); White Blood Count 9.4 Thou/mm3 (3.6-11.0)
[2024-09-27 06:01] VITALS: BP 131/79; PULSE 102; RESP 20; TEMP 36.6; O2SAT 94
[2024-09-27 06:10] LABS: HCG Qualitative,Urine Negative
[2024-09-27 06:17] LABS: Alcohol, Urine Negative (Negative); Amphetamine/Methamp Scrn,U Negative (Negative); Barbiturate Screen,Urine Negative (Negative); Benzodiazepines Screen,Urine Negative (Negative); Benzoylecgonine Screen, Ur Negative (Negative); Fentanyl Screen,Urine Negative (Negative); Opiate Screen,Urine Negative (Negative); THC Screen,Urine Negative (Negative)
[2024-09-27 06:18] LABS: Acetaminophen 11.2 mcg/mL (10.0-20.0); Alanine Aminotransferase 18 U/L (10-49); Albumin, Serum 4.6 gm/dL (3.5-5.0); Albumin/Globulin Ratio 1.4 (1.2-2.2); Alkaline Phosphatase 82 U/L (46-116); Anion Gap 18 (7-16); Aspartate Amino Transferase 17 U/L (0-34); BUN/Creatinine Ratio 10 Ratio (12-20); Bilirubin,Total 0.5 mg/dL (0.3-1.2); Blood Urea Nitrogen 8 mg/dL (9-23); Calcium 9.8 mg/dL (8.3-10.6); Calcium (Corrected) 9.8 mg/dL (8.5-10.1); Chloride 101 mMol/L (98-107); Creatinine (Component) 0.8 mg/dL (0.6-1.3); Estimated Creatinine Clearance 133.8 mL/min (>60); Globulin 3.4 gm/dL (2.3-3.5); Glucose 150 mg/dL (74-106); Osmolality,Calculated 280 (275-295); Potassium 3.2 mMol/L (3.4-5.1); Salicylate < 3.0 mg/dL; Sodium 140 mMol/L (136-145); eGFR > 60 See Note
[2024-09-27 08:00] VITALS: BP 121/91; PULSE 105; RESP 23; TEMP 36.6; O2SAT 96
--- NOTE | 2024-09-27 09:26 | PC.CC ---
Patient is a 24 year-old female who presents to the hospital for overdose. Due to the potential overdose the provider requested a mental health evaluation for the patient. ASWJame and DIRECTOR AIRPORT Student, Silvia met with patient [id number] to complete assessment. Patient provided verbal consent for student to remain in the room during assessment. ASW introduced self, role, and reason for assessment. ASW disclosed limits of confidentiality as well. Patient appeared alert and oriented to self, place, and situation. Patient made appropriate eye contact with this speech writer. Patients mood appeared to be euthymic remained engaged throughout assessment, patient had good insight and judgement. No signs of delusions, paranoid or V/h. Patient reports she has been sick since returning from a trip on 09/23/2024 and reports she took two Midol pills for a headache. Patient reports that she felt so sick from her head hurting that she called [phone] instead of [phone] to bring her to the hospital. Patient reports she did not overdose on the medication as she only two pills which what was left in the bottle to help with her headache. Patient denied having suicidal ideations and reports this was not a suicide attempt. At the time of encounter patient is denying suicidal and homicidal ideations, visual and auditory hallucinations. Patient reports she has a history of mental health and is prescribed psychotropic medication Prozac 20mg and Geodon 40mg daily, per patient, she is compliant with medication. Patient is followed by [facility] and is followed by Clinician, Mele Ortega and Psychiatrist, Dr. Varela. Patient disclosed she has a diagnosis of Schizoaffective Bipolar Type. Has past suicide attempts with the last time being a year ago when she was placed on a 5150-hold. Patient scored low-risk on the [place] Screening and was negative on toxicology. Patient reports she would like to go home and is open to safety planning. Patient provided consent to make contact with her brother, Cristian . ASW made telephone contact with brother, Cristian for collateral information. Per brother, he reports that patient woke him up last night as she did not feel well as she had a headache. She stated to the brother that she had taken two Midol pills. He was unable to confirm how many pills were in the bottle as it was empty. Patient?s brother reports he and his mother, Christina Ma are willing to establish safety plan with this speech writer and patient. ASW made [id number] contact with patient to discuss safety plan. Patient reports that she would remain with her mother, and as a protective coping mechanism she would go outside to get some fresh air, an appointment with mental health to be scheduled, would call the [phone] number if she needs. Upon clinical consultation with [facility], Sally Andrews patient does not meet criteria for a 5150-hold. A safety plan is to be established with patient and patient?s brother and mother. ASW made telephone contact with patient?s brother Cristian and mother Christina to establish safety plan. Safety plan established is for patient to return home with extra supervision provided by Evelia for the next 72 hours, appointment with mental health clinician Mele Ortega scheduled for today at 4pm, all medications and sharps are to be locked by the mother, patient provided with the community crisis hotline number and [facility] mental health, patient to return to the ER is she needs to return. ASW provided update safety plan to Dr. Garcia, filing and polishing supervisor Alicia, and bedside ROGELIO Austin.
[2024-09-27 09:35] VITALS: BP 119/84; PULSE 99; RESP 18; TEMP 36.7; O2SAT 98
--- NOTE | 2024-09-27 09:47 | EDNOTE_ITS ---
Emergency Room Addendum Addendum Narrative: 0600: Care assumed from Dr. Manuel, the previous shift emergency physician. Past medical, surgical, social and family history reviewed. Vitals and home medications reviewed. I will assume the care of the patient at this time, pending mental health evaluation. Patient has been medically cleared by previous physician. Please refer to the emergency department record for history and examination from initial visit.?The following addendum documentation note is intended to reflect any pending information, findings, or radiology results not included in the patient?s initial chart. Nursing notes reviewed by me. Vital signs reviewed by me. [place] medical records reviewed by me. Patient was last evaluated here on 07/21/2024 for bipolar disorder. Patient has been evaluated by our rn social services who states she safety planned with patient and family. Patient has an appointment scheduled with clinician today at 4:00PM. Patient is in agreement with plan and was discharged in stable condition.
== END 2024-09-27 09:51 | disposition home or self-care (01) ==
PROVIDERS: Emergency Provider Emergency Medicine; PCP Family Medicine
DX: T39.1X2A Poisoning by 4-Aminophenol derivatives, intentional self-harm, initial encounter (principal); R00.0 Tachycardia, unspecified
CPT/HCPCS: 36415; 80053; 80307; 80320; 80329; 81025; 85025; 90839; 93005; 96127; 99284; G0480

== ENCOUNTER 2024-10-13 19:35 | Emergency (ER) | payer MEDICAID, SELFPAY ==
--- NOTE | 2024-10-13 19:57 | PD.EDPSYCH ---
ED Psych RME/HPI General Chief Complaint: Psychiatric Symptoms Stated Complaint: 5150 Time Seen by Provider: 10/13/24 19:50 Arrival date/time: 10/13/24 19:35 RME / HPI RME / HPI Narrative: This section includes all my notes and documentations, including HPI, PE, and ED course. Jonathan Garcia MD HPI: 24 y/o female with Hx of Schizophrenia, Anxiety, Depression, and Bipolar Disorder BIB PPD presents after taking 7 Tylenol of unknown strength and approximately 20-40 Aleve 220 mg x just RESPIRATORY SERVICES MANAGER. Patient was placed on a 5150 hold by PPD. Patient states her ftmzod-uw-zmr calls her dumb and is constantly receiving text messages from people who call her annoying and tell her that she should kill herself . She attempted suicide last year by stabbing herself in the stomach. Patient is adamant about not to go to [facility] for psych treatment. She takes Prozac. No thoughts of hurting other people. No auditory or visual hallucinations. No other complaints. ROS: All negative except as documented in HPI. Physical Exam: General: Alert and oriented. Eyes: Conjunctivae and lids clear. EOMI. PERRL. ENT: No nasal congestion. Neck: Supple. Heart: RRR. Lungs: No respiratory distress. Good air movement. No rhonchi, wheezing, rales. Abdomen: Soft and nontender. Normal bowel sounds. No distension. No rebound or guarding. Skin: Warm and dry. Neuro: Alert and oriented X 3. Cranial Nerves II-XII grossly intact. No peripheral motor deficits. I reviewed all diagnostic test results: My interpretation of the EKG is: Sinus tachycardia (141 bpm) with nonspecific ST-T changes. Blood tests and urine tests are unremarkable. At this point, diagnoses include: Suicidal ideation, Overdose Treatment here included: Lopressor, Zofran, IV fluid. Patient is medically cleared. At 6 AM on 10/14/2024, the care of the patient was transferred to Dr. Garcia. Jonathan Garcia MD Related Data Home Medications ?Medication ?Instructions ?Recorded ?Confirmed atorvastatin 20 mg tablet 20 mg PO HS 06/16/22 07/03/23 guanfacine 1 mg tablet 1 mg PO HS 06/16/22 07/03/23 norgestimate 0.25 mg-ethinyl 1 tab PO QDAY 06/16/22 07/03/23 estradiol 0.035 mg tablet (Estarylla) buspirone 15 mg tablet 15 mg PO BID 07/03/23 07/03/23 fluoxetine 20 mg capsule 20 mg PO QDAY 07/03/23 07/03/23 levetiracetam 750 mg tablet 750 mg PO QDAY 07/03/23 07/03/23 metformin 500 mg tablet 500 mg PO BID 07/03/23 07/03/23 oxcarbazepine 150 mg tablet 150 mg PO BID 07/03/23 07/03/23 ziprasidone HCl 40 mg capsule 40 mg PO HS 07/03/23 07/03/23 Previous Rx's ?Medication ?Instructions ?Recorded levofloxacin 750 mg tablet 750 mg PO QDAY #3 tabs 07/06/23 Allergies Allergy/AdvReac Type Severity Reaction Status Date / Time Sulfa (Sulfonamide Allergy Unknown Verified 09/27/24 02:43 Antibiotics) Review of Systems Review of Systems Systems Reviewed: All systems reviewed, normal except as documented Past Medical History Past Medical History NEUROLOGIC: Positive Neurological Disorders and Seizures CARDIAC: Positive Hypercholesterolemia and Hypertension ENDOCRINE: Positive Endocrine Disorders and Diabetes Mellitus Type 2 PSYCHO/SOCIAL: Positive Psychiatric Problems, Schizophrenia, Bipolar Disorder, Depression and Anxiety Family History FAMILY HISTORY: Positive Family Psychiatric Problems Social History SMOKING STATUS: Current every day smoker SUBSTANCE USE: former substance user (last use 1 year ago) ED Exam Narrative Physical exam: Refer to HPI above Course Quality Measures none Orders Category Date Time Status Miscellaneous Nursing Order NOW Care 10/13/24 20:00 Active Saline [Insert IV] NOW Care 10/13/24 19:59 Active Referral Psych Eval Stat Cons 10/13/24 20:00 Active Acetaminophen Stat Lab 10/13/24 20:26 Completed Acetaminophen Stat Lab 10/13/24 22:47 Completed Alcohol, Blood Medical Stat Lab 10/13/24 20:26 Completed Amylase Stat Lab 10/13/24 20:26 Completed Bilirubin,Direct Stat Lab 10/13/24 20:26 Completed Bilirubin,Direct Stat Lab 10/13/24 22:47 Completed CBC Stat Lab 10/13/24 20:26 Completed CMP [Comprehensive Metabolic Panel] Stat Lab 10/13/24 20:26 Completed CMP [Comprehensive Metabolic Panel] Stat Lab 10/13/24 22:47 Completed Drug Screen,Urine Stat Lab 10/13/24 20:31 Completed Free T4 (Free Thyroxine) Stat Lab 10/13/24 20:26 Completed HCG Qualitative,Urine Stat Lab 10/13/24 20:31 Completed Lipase Stat Lab 10/13/24 20:26 Completed Magnesium Stat Lab 10/13/24 20:26 Completed Salicylate Stat Lab 10/13/24 20:26 Completed TSH [Thyroid Stimulating Hormone] Stat Lab 10/13/24 20:26 Completed Troponin I Stat Lab 10/13/24 20:26 Completed UA, C/S IF [Urinalysis, C/S if Indicated] Stat Lab 10/13/24 20:31 Completed Metoprolol Tartrate [Lopressor] Med 10/13/24 21:24 Discontinued 50 mg PO X1 ONE Ondansetron Inj [Zofran Inj] Med 10/13/24 19:59 Discontinued 4 mg IVP X1 ONE Sodium Chloride 0.9% 1000 ml [Ns] 1,000 ml Med 10/13/24 19:59 Discontinued IV 999 mls/hr Vital Signs Vital signs: Vital Signs Temperature 98.1 F 10/13/24 20:10 Pulse Rate 128 H 10/13/24 20:10 Respiratory Rate 20 10/13/24 20:10 Blood Pressure 149/108 H 10/13/24 20:10 Pulse Oximetry (%) 96 10/13/24 20:10 Oxygen Delivery Method Room Air 10/13/24 20:10 Psych MDM Narrative MDM Narrative:: Scribe Attestation: I, Kat Dudley, am scribing for and in the presence of Dr. Garcia. Provider Notation: Although this document has been carefully reviewed, there may still be some phonetic and other typographical errors.? These errors are purely grammatical due to imperfections in the software program and should not be construed in any way to? compromise the substance of the patient's medical care during this visit. 24 y/o female with Hx of Schizophrenia, Anxiety, Depression, and Bipolar Disorder BIB PPD presents after taking 7 Tylenol of unknown strength and approximately 40 Aleve 250 mg x just RESPIRATORY SERVICES MANAGER. Patient was placed on a 5150 hold by PPD after pushing her [id number]. Patient states her jhlpdy-iv-rmc calls her dumb and is constantly receiving text messages from people who call her annoying and tell her that she should kill herself . She attempted suicide last year by stabbing herself in the stomach. Patient is adamant about not going to [facility] for psych treatment. She takes Prozac. No other complaints. Patient data External records reviewed:: [facility] previous records (Reviewed prior ED records from 09/27/24. Patient was seen for Anxiety disorder.) Clinical information provided by:: patient and law enforcement Social determinants that could affect healthcare access:: mental health (Schizophrenia, Anxiety, Depression, and Bipolar Disorder) Patient has the following chronic illnesses:: Seizures, Hypercholesterolemia, Hypertension, Diabetes Mellitus Type 2, Schizophrenia, Bipolar Disorder, Depression and Anxiety How is presenting disease/condition affected by chronic disease/condition?: exacerbated by Evaluation data The following diagnostics were reviewed and interpreted by me:: lab results and EKG tracing(s) (My interpretation of the EKG is: Sinus tachycardia (141 bpm) with nonspecific ST-T changes. Jonathan Garcia MD) Lab and/or radiology exams considered but not ordered:: None Interpretation Summary: I reviewed all diagnostic test results: My interpretation of the EKG is: Sinus tachycardia (141 bpm) with nonspecific ST-T changes. Blood tests and urine tests are unremarkable. Medications / Prescriptions Medications or Prescriptions considered but not ordered:: None Medication administrations:: Medication Administration History Discontinued Medications Sodium Chloride (Ns) 1,000 mls @ 999 mls/hr IV .Q1H1M ONE Stop: 10/13/24 20:59 Last Infusion: 10/13/24 22:12 Dose: Infused Documented By: Admin: 10/13/24 20:38 Dose: 999 mls/hr Documented By: BD Metoprolol Tartrate (Metoprolol Tartrate 25 Mg Tablet) 50 mg PO X1 ONE Stop: 10/13/24 21:25 Last Admin: 10/13/24 22:12 Dose: 50 mg Documented By: CCT Ondansetron HCl (Ondansetron Inj 2 Mg/Ml Inj 2 Ml) 4 mg IVP X1 ONE; Protocol Stop: 10/13/24 20:00 Last Admin: 10/13/24 20:37 Dose: 4 mg Documented By: BD Lopressor, Zofran, IV fluid Consultations Consultation(s) initiated? (list below): No Diagnosis Psych Differential Diagnosis: acute psychosis, chronic schizophrenia, suicidal ideation, bipolar disorder, depression, drug-induced psychotic disorder and acute anxiety Most likely diagnosis given after review of the tests above:: Suicidal ideation, Overdose Admission Indicated Admission indicated?: not indicated Explain why admission is indicated or not indicated:: No psychiatric service here at this facility. Admission Request Was there a request for admission?: No Disposition Plan Disposition Plan: other (specify) (Signed out to Dr. Garcia at 6 AM.) Discharge Plan Prescriptions/Referrals Prescriptions/Med Rec: No Action ziprasidone HCl 40 mg Capsule 40 mg PO HS metformin 500 mg Tablet 500 mg PO BID oxcarbazepine 150 mg Tablet 150 mg PO BID fluoxetine 20 mg Capsule 20 mg PO QDAY buspirone 15 mg Tablet 15 mg PO BID levetiracetam 750 mg Tablet 750 mg PO QDAY levofloxacin 750 mg tablet 750 mg PO QDAY Qty: 3 0RF atorvastatin 20 mg tablet 20 mg PO HS Patient Comments: TAKE 1 TABLET BY MOUTH AT BEDTIME norgestimate-ethinyl estradiol [Estarylla] 0.25-35 mg-mcg Tablet 1 tab PO QDAY guanfacine 1 mg Tablet 1 mg PO HS Referrals: Sandoval Cooper MD [Primary Care Provider] - In 1 week Problem List Clinical Impression: Suicidal ideation, Overdose Patient/Caregiver Discharge Instructions Print Language: Turkish
[2024-10-13 20:10] VITALS: BP 149/108; PULSE 128; RESP 20; TEMP 36.7; O2SAT 96; BMI 44.2
--- NOTE | 2024-10-13 20:10 | PC.NURSE ---
Pt brought to the ER by JHONATAN for suicidal ideation and placed on 5150 hold. Pt states she had an argument with [id number] and she also states she was receiving messages from people telling her to kill herself. Pt then took 2 handful of Aleve (250mg each) and also took Tylenol x7 pills (unknown strength). Pt is alert/oriented x3. Cooperative. No s/s of acute distress noted. Respirations are even and unlabored. All harmful objects removed from room. 1:1 sitter at bedside. Discussed plan of care with pt; pt verbalized understanding.
[2024-10-13 20:35] LABS: Collection Type, Urine Clean Catch
--- NOTE | 2024-10-13 20:35 | PC.NURSE ---
Called Poison Control, spoke to Bishnu, Pharmacist. Made aware pt took 2 handful of Aleve (per pt 250mg each) and Tylenol x7 pills (unknown strength). Pt states she took pills between 6:50pm-7:00pm. Per Bishnu Pharmacist, check level of Tylenol, salicylates, blood alcohol, and chemistry. Recommends to recheck chemistry 4-6hr from the first draw. Also rccheck Tylenol level 4hrs from when pills were ingested. Per Bishnu, Pharmacist, if Tylenol level is greater than or equal to 150, start acetylcysteine treatment. Dr. Garcia made aware of pharmacist recommendations.
[2024-10-13] MEDS: ONDANSETRON INJ 2 MG/ML INJ 2 ML 4 MG IVP (20:37)
[2024-10-13 20:38] LABS: Basophils # (Auto) 0.1 Thou/mm3 (0.0-0.2); Basophils % (Auto) 0 % (0-2.5); Eosinophils # (Auto) 0.1 Thou/mm3 (0.0-0.5); Eosinophils % (Auto) 0 % (0-10); Hematocrit 41.8 % (36.0-46.0); Hemoglobin 14.3 g/dL (12.0-16.0); Immature Granulocytes % (Auto) 0 % (0-0); Immature Granulocytes Auto 0.07 Thou/mm3 (0.00-0.00); Lymphocytes # (Auto) 1.9 Thou/mm3 (1.0-4.8); Lymphocytes % (Auto) 12 % (10-50); Mean Corpuscular HGB Conc 34.2 g/dl (31.0-37.0); Mean Corpuscular Hemoglobin 28.9 pg (25.0-35.0); Mean Corpuscular Volume 84 fL (80-100); Monocytes # (Auto) 0.8 Thou/mm3 (0.0-0.8); Monocytes % (Auto) 5 % (0-12); Neutrophils # (Auto) 13.3 Thou/mm3 (1.8-7.7); Neutrophils % (Auto) 82 % (37-80); Nucleated Red Blood Cell % 0 /100 WBC (0); Platelet Count 472 Thou/mm3 (140-440); RDW Standard Deviation 44.8 fL (36.4-46.3); Red Blood Count 4.95 Miln/mm3 (4.00-5.20); White Blood Count 16.1 Thou/mm3 (3.6-11.0)
[2024-10-13] MEDS: SODIUM CHLORIDE 0.9% 1000 ML 1,000 ML 999 ML IV (20:38)
[2024-10-13 20:41] LABS: HCG Qualitative,Urine Negative
[2024-10-13 21:18] LABS: Amphetamine/Methamp Scrn,U Negative (Negative); Barbiturate Screen,Urine Negative (Negative); Benzodiazepines Screen,Urine Negative (Negative); Benzoylecgonine Screen, Ur Negative (Negative); Fentanyl Screen,Urine Negative (Negative); Opiate Screen,Urine Negative (Negative); THC Screen,Urine Negative (Negative)
[2024-10-13 21:27] LABS: Acetaminophen < 2.0 mcg/mL (10.0-20.0); Alanine Aminotransferase 18 U/L (10-49); Albumin, Serum 4.6 gm/dL (3.5-5.0); Albumin/Globulin Ratio 1.6 (1.2-2.2); Alcohol, Blood Medical < 3.0 mg/dL (0-10.0); Alkaline Phosphatase 71 U/L (46-116); Amylase 78 U/L (30-118); Anion Gap 18 (7-16); BUN/Creatinine Ratio 16 Ratio (12-20); Bilirubin,Direct < 0.1 mg/dL (0.0-0.3); Bilirubin,Total 0.3 mg/dL (0.3-1.2); Blood Urea Nitrogen 13 mg/dL (9-23); Calcium 10.3 mg/dL (8.3-10.6); Calcium (Corrected) 10.3 mg/dL (8.5-10.1); Carbon Dioxide 21.3 mMol/L (20.0-31.0); Chloride 105 mMol/L (98-107); Creatinine (Component) 0.8 mg/dL (0.6-1.3); Free T4 (Free Thyroxine) 1.39 ng/dL (0.89-1.76); Globulin 2.9 gm/dL (2.3-3.5); Glucose 185 mg/dL (74-106); Lipase 51 U/L (12-53); Magnesium 1.5 mg/dL (1.6-2.6); Osmolality,Calculated 291 (275-295); Potassium 4.3 mMol/L (3.4-5.1); Salicylate < 3.0 mg/dL; Sodium 144 mMol/L (136-145); Thyroid Stimulating Hormone 1.99 uIU/mL (0.55-4.78); Total Protein 7.5 gm/dL (5.7-8.2); Troponin I < 0.020 ng/mL (0.0-0.045); eGFR > 60 See Note
[2024-10-13 21:33] LABS: Bilirubin,Urine Negative (Negative); Blood,Urine 3+ (Negative); Clarity,Urine Turbid (Clear/Hazy); Color,Urine Yellow (Lt Yel-Yel); Culture Indicated,Urine Not Indicated; Glucose, Urine 4+ (Negative); Hyaline Casts,Urine 1 /hpf (0-1); Ketones,Urine Negative (Negative); Leukocyte Esterase,Urine Negative (Negative); Nitrite,Urine Negative (Negative); Protein,Urine 1+ (Neg - Trace); RBC,Urine 1254 /hpf (0-3); Specific Gravity,Urine 1.035 (1.001-1.035); Squamous Epithelial Cell,Urine 4 /hpf (0-5); Urobilinogen,Urine Negative mg/dL (0.0-1.0); WBC,Urine 10 /hpf (0-5)
[2024-10-13 21:37] VITALS: BP 128/74; PULSE 124; RESP 18; TEMP 36.7; O2SAT 96
[2024-10-13 22:12] VITALS: BP 128/74; PULSE 124
[2024-10-13] MEDS: METOPROLOL TARTRATE 25 MG TABLET 50 MG PO (22:12)
[2024-10-13 23:00] VITALS: BP 136/90; PULSE 114; RESP 19; TEMP 36.6; O2SAT 95
[2024-10-13 23:24] LABS: Acetaminophen 11.7 mcg/mL (10.0-20.0); Alanine Aminotransferase 17 U/L (10-49); Albumin, Serum 4.6 gm/dL (3.5-5.0); Albumin/Globulin Ratio 1.6 (1.2-2.2); Alkaline Phosphatase 68 U/L (46-116); Anion Gap 16 (7-16); BUN/Creatinine Ratio 14 Ratio (12-20); Bilirubin,Direct < 0.1 mg/dL (0.0-0.3); Bilirubin,Total 0.3 mg/dL (0.3-1.2); Blood Urea Nitrogen 10 mg/dL (9-23); Calcium 9.8 mg/dL (8.3-10.6); Calcium (Corrected) 9.8 mg/dL (8.5-10.1); Carbon Dioxide 20.8 mMol/L (20.0-31.0); Chloride 108 mMol/L (98-107); Creatinine (Component) 0.7 mg/dL (0.6-1.3); Estimated Creatinine Clearance 150.2 mL/min (>60); Globulin 2.8 gm/dL (2.3-3.5); Glucose 130 mg/dL (74-106); Osmolality,Calculated 289 (275-295); Potassium 4.5 mMol/L (3.4-5.1); Sodium 145 mMol/L (136-145); Total Protein 7.4 gm/dL (5.7-8.2); eGFR > 60 See Note
[2024-10-14] VITALS (12 sets, daily range): BP systolic 111–145; BP diastolic 72–101; PULSE 97–110; RESP 13–19; TEMP 36.6–37; O2SAT 94–98
--- NOTE | 2024-10-14 00:10 | PC.NURSE ---
Pt awake, alert, oriented to self and place. Pt pulled out IV access and removed senior environmental engineer. Pt stated that the voices told her to do it. Pt states she doesn't want to go home; she wants to be place in mental health facility preferably in [place]. Discussed plan of care with pt again;kkkkkkkkkkkkkkkkkkkkkkkkkkkkkkkkkkkkkkkkkkkkkkkkkkkkkkkkkkkkkkkkkkkkkkkkkkkkkkkkkkkkkkkkkkkkkkkkkkkkkkkkkkkkkkkkkkkkkkkkkkkkkkkkkkkkkkkkkkkkkkkkkkkkkkkkkkk pt was able to calm down. Pt then allowed nursing staff to place senior environmental engineer back on. Pt given po fluids and warm blanket. 1:1 sitter at bedside.
--- NOTE | 2024-10-14 00:10 | PC.NURSE ---
Pt awake, alert, oriented to self and place. Pt pulled out IV access and removed rn cardiac cath. Pt stated that the voices told her to do it. Pt states she doesn't want to go home; she wants to be place in mental health facility preferably in [place]. Discussed plan of care with pt again, verbalized understanding. Pt was able to calm down. Pt then allowed nursing staff to place rn cardiac cath back on. Pt given po fluids and warm blanket. 1:1 sitter at bedside.
--- NOTE | 2024-10-14 04:35 | PC.NURSE ---
Received call from Poison Control, spoke to Yeni Palafox. Aware of all lab results. Recommends to continue to monitor until pt is at baseline.
[2024-10-14 05:08] LABS: Aspartate Amino Transferase 26 U/L (0-34)
--- NOTE | 2024-10-14 07:49 | PC.NURSE ---
PT DECLINED A BREAKFAST TRAY
--- NOTE | 2024-10-14 08:05 | PC.NURSE ---
PT REQUESTED TO GO TO THE RESTROOM. SITTER HELPED PT GO TO THE RESTROOM. SITTER REPORTED TO RN THAT NEW ONSET OF DIZZINESS. RN GOT A WHEELCHAIR AND HELPED PT BACK TO ROOM. VITAL SIGNS CHARTED. PROVIDER NOTIFIED, ORDERS GIVEN
[2024-10-14] MEDS: LORazepam 0.5 MG TABLET PO (08:24)
[2024-10-14 09:04] LABS: Basophils # (Auto) 0.1 Thou/mm3 (0.0-0.2); Basophils % (Auto) 1 % (0-2.5); Eosinophils # (Auto) 0.1 Thou/mm3 (0.0-0.5); Eosinophils % (Auto) 1 % (0-10); Hematocrit 42.8 % (36.0-46.0); Hemoglobin 14.1 g/dL (12.0-16.0); Immature Granulocytes % (Auto) 0 % (0-0); Immature Granulocytes Auto 0.05 Thou/mm3 (0.00-0.00); Lymphocytes # (Auto) 2.9 Thou/mm3 (1.0-4.8); Lymphocytes % (Auto) 25 % (10-50); Mean Corpuscular HGB Conc 32.9 g/dl (31.0-37.0); Mean Corpuscular Hemoglobin 29.4 pg (25.0-35.0); Mean Corpuscular Volume 89 fL (80-100); Monocytes # (Auto) 0.7 Thou/mm3 (0.0-0.8); Monocytes % (Auto) 6 % (0-12); Neutrophils # (Auto) 7.6 Thou/mm3 (1.8-7.7); Neutrophils % (Auto) 66 % (37-80); Nucleated Red Blood Cell % 0 /100 WBC (0); Platelet Count 382 Thou/mm3 (140-440); RDW Standard Deviation 48.3 fL (36.4-46.3); White Blood Count 11.5 Thou/mm3 (3.6-11.0)
--- NOTE | 2024-10-14 09:05 | PD.EDADDENDU ---
Emergency Room Addendum Addendum Narrative: 0600: Care assumed from Dr. Garcia, the previous shift emergency physician. Past medical, surgical, social and family history reviewed. Vitals and home medications reviewed. I will assume the care of the patient at this time, pending mental health evaluation. Patient was medically cleared for psych eval by previous physician. Please refer to the emergency department record for history and examination from initial visit.?The following addendum documentation note is intended to reflect any pending information, findings, or radiology results not included in the patient?s initial chart. 1050: Notified by ASW that the patients 5150 hold has been upheld and at this time pending LPS facility placement. 1313: Patient became agitated and code nahum was called overhead. Ordered Ativan. 1800: Patient signed out to Dr. Garcia pending LPS facility placement.
[2024-10-14 09:25] LABS: Acetaminophen < 2.0 mcg/mL (10.0-20.0); Salicylate < 3.0 mg/dL
--- NOTE | 2024-10-14 09:47 | PC.NURSE ---
SITTERED HELPED PT TO THE RESTROOM. PT DENIES DIZZINES AND SOB
--- NOTE | 2024-10-14 10:31 | PC.CC ---
Patient is a 24 year-old female who presents to the hospital on a 5150-by [place] [employer] Officer Kee for Danger to Self. Patient overdose on approx. 7 Tylenol and 20-40 Aleve of 220mg. William made [id number] contact with patient to complete assessment. ASW introduced self, role, and reason for assessment. ASW disclosed limits of confidentiality as well. Patient appeared alert and oriented to self, place, and situation. Patient made appropriate eye contact with this advertising copy writer. Patients mood appeared to be depressed with a flat affect and disinhibited, patient had good insight and judgement. No signs of delusions, paranoid or V/h. Patient reports yesterday she was on social media and engaging with people who made her feel like she was nothing in life and was tired of them. Patient reports she began to feel sad and this is when she took the Tylenol and Aleve with the intention of going to sleep and not waking up. Patient reports she was frustrated. Patient reports she is now regretful of taking the pills as she does not want to . Patient reports she has a new nephew who she has to live for that was born a couple of weeks ago. At the time of encounter patient is denying suicidal and homicidal ideations, visual and auditory hallucinations. Patient reports she has a history of mental health and is prescribed psychotropic medication Prozac 20mg and Geodon 40mg daily, per patient, she is compliant with medication. Patient is followed by [facility] and is followed by Clinician, Mele Ortega and Psychiatrist, Dr. Varela. Patient reports she does not recall when her next appointment is with mental health. Patient disclosed she has a diagnosis of Schizoaffective Bipolar Type. Has past suicide attempts with the last time being a year ago when she was placed on a 5150-hold. Patient scored low-risk on the [place] Screening and was negative on toxicology. Patient provided consent to make telephone contact with her brother, Cristian Ma . ASW made telephone contact with Cristian who reports he was not home at the time of the incident but their brother Bridger was home and could contact him . ASW obtained verbal consent to make contact with patient?s brother Bridger. ASW made telephone contact with Bridger who reports he has noticed the patient has been more depressed as of lately and believes it is stemming from being on social media. He reports the patient was left home alone and his mother?s bedroom door was unlocked. He believe the patient went into the room and got the pills that were accessible to her because when they returned home they found pills on the counter and a mirror broken. Patient made statements to him that ?she would be better off ?. Bridger then put the phone on speaker with his brother Cristian present and reports that they do not feel comfortable taking the patient home and feel that she needs more help. Upon clinical consultation with SHELTER DIRECTOR, Sally Andrews patient?s 5150-hold will be upheld for Danger to Self. Patient is unable to provide a viable safety plan and family is unwilling to safety plan. ASW provided updated Dr. Garcia, supervisor salvage Lizeth, and bedside RN Dannielle of 5150-hold and LPS placement pending. Patient was provided with 5150-advisement and provided with patient?s rights handbook. ASW made telephone contact with brothers, Bridger and Cristian to provide them with update. ASW to send referral to LPS facilities via [email or web address].
[2024-10-14] MEDS: LORazepam 2 MG/ML VIAL 1 MG IM (13:29)
--- NOTE | 2024-10-14 14:02 | PC.CC ---
1404-[facility] reports provider is reviewing packet and will call back. 1401-[facility]-No open beds available. 1400 [facility]- No open beds today. 1359 [facility]- Patient is in there queue no open beds. [facility] 1355 [facility]. [facility] reports they will be reviewing packet soon. 1352 [facility] reports they do not have any open beds.
--- NOTE | 2024-10-14 16:43 | PC.CC ---
1644 ASW resent packet via [facility] to [facility] Facilities
--- NOTE | 2024-10-14 18:17 | PD.EDADDENDU ---
Emergency Room Addendum <Kat Dudley - Last Filed: 10/14/24 22:28> Addendum Narrative: I took over the care from previous shift physician at 6 PM on 10/14/2024. See previous notes for complete H & P and ED course. Diagnoses include: Suicidal ideation, drug overdose. Treatment here included Pending psych placement. Signed-out to Dr. Garcia at 6 AM on 10/15/2024. Jonathan Garcia MD <Jonathan Garcia MD - Last Filed: 10/15/24 01:52> Addendum Narrative: I took over the care from previous shift physician at 6 PM on 10/14/2024. See previous notes for complete H & P and ED course. Diagnoses include: Suicidal ideation, drug overdose. During my watch, the patient remained stable. Pending psych placement. Signed-out to Dr. Garcia at 6 AM on 10/15/2024. Jonathan Garcia MD
--- NOTE | 2024-10-14 19:35 | PC.NURSE ---
Pt awake/alert/oriented x3. Respiration are even and unlabored. No s/s acute distress noted. Pt requested for home medications to be continued while here in the hospital. Informed pt that Dr. Garcia will be notified of medications. Plan of care ongoing.
--- NOTE | 2024-10-14 19:45 | PC.NURSE ---
Spoke to pts mother Christina regarding home medications. Verified medications with pts mother, Christina. Dr. Garcia made aware of home medications.
[2024-10-14] MEDS: FLUoxetine HCL 10 MG CAPSULE 30 MG PO (20:56)
[2024-10-14] MEDS: ZIPRASIDONE 20 MG CAPSULE PO (20:56)
[2024-10-14] MEDS: levETIRAcetam 250 MG TABLET 750 MG PO (20:56)
--- NOTE | 2024-10-15 06:00 | PC.NURSE ---
Pt resting with eyes closed. Respirations are even and unlabored. No s/s of acute distress noted. Plan of care ongoing.
[2024-10-15 06:15] VITALS: BP 109/75; PULSE 98; RESP 20; TEMP 36.9; O2SAT 94
--- NOTE | 2024-10-15 07:59 | PD.EDADDENDU ---
Emergency Room Addendum Addendum Narrative: 0600: Care assumed from Dr. Garcia, the previous shift emergency physician. Past medical, surgical, social and family history reviewed. Vitals and home medications reviewed. I will assume the care of the patient at this time, pending LPS facility placement. The patient was placed in ED observation care at 0600 10/15/2024. While in ED observation the pt will have access to water, food, and personal hygiene. If the pt takes home medication(s), they will be continued in ED observation. Please refer to the emergency department record for history and examination from initial visit.?The following addendum documentation note is intended to reflect any pending information, findings, or radiology results not included in the patient?s initial chart. Patient has been accepted for transfer by Dr. Donaldson at [facility]. 1100: EMS here to transfer patient. Patient has remained stable throughout the emergency department visit. Patient was transferred in stable condition.
[2024-10-15 08:07] VITALS: BP 133/87; PULSE 104; RESP 17; TEMP 36.3; O2SAT 96
--- NOTE | 2024-10-15 08:39 | PC.NURSE ---
SPOKE TO [facility] FOR A PRELIMINARY REPORT OF PT
[2024-10-15] MEDS: levETIRAcetam 250 MG TABLET 750 MG PO (08:48)
[2024-10-15] MEDS: FLUoxetine HCL 10 MG CAPSULE 30 MG PO (08:48)
[2024-10-15] MEDS: ZIPRASIDONE 20 MG CAPSULE PO (08:49)
--- NOTE | 2024-10-15 09:58 | PC.NURSE ---
ATTEMPTED TO CALL NURSE TO NURSE REPORT. THEY STATED THAT THEY WILL GIVE ME A CALL BACK ONCE A NURSE HAS BEEN ASSIGNED TO THIS PT
[2024-10-15 10:04] VITALS: BP 113/77; PULSE 94; RESP 18; TEMP 36.8; O2SAT 95
== END 2024-10-15 10:50 ==
PROVIDERS: Family Medicine; Emergency Provider Emergency Medicine; PCP Family Medicine
DX: Z04.6 Encounter for general psychiatric examination, requested by authority (principal); T39.1X2A Poisoning by 4-Aminophenol derivatives, intentional self-harm, initial encounter; Z75.1 Person awaiting admission to adequate facility elsewhere
CPT/HCPCS: 36415; 80053; 80307; 80320; 80329; 81001; 81025; 82150; 82248; 83690; 83735; 84439; 84443; 84450; 84484; 85025; 96127; 96361; 96372; 96374; 99285; J2060; J2405; J7030; A9270; G0480